=== PATIENT | female | born 1945 | race Caucasian/White ===

== ENCOUNTER → 2020-09-30 14:10 | Outpatient (CLI) | payer MEDICARE, SELFPAY ==
--- NOTE | 2020-09-30 14:10 | CT_ITS ---
PROCEDURE: CT ABDOMEN PELVIS WO CON CLINICAL INDICATION: abd pain, constipation, right flank pain COMPARISON: No exams were available for comparison TECHNIQUE: Axial images obtained with sagittal and coronal reformats. All CT scans at the facility use one or more dose reduction, viz: automated exposure control, ma/kV adjustment per patient size (including targeted exams where dose is matched to indication, i.e. head), or iterative reconstruction technique. FINDINGS: LOWER THORAX: No acute finding ABDOMEN & PELVIS: The liver has an unremarkable appearance. There are multiple splenic calcified granulomas. The adrenal glands and pancreas are unremarkable. Small focus of increased density is present in the posterior aspect of the gallbladder suggesting a small stone inferiorly. There is mild prominence of the renal pelves on both sides. No renal or ureteral calculi. No intestinal obstruction or free air. The bowel gas pattern is nonspecific with a few air-fluid levels within nondistended small bowel. Prior hysterectomy. There is colonic diverticulosis but no evidence of diverticulitis. Atheromatous changes involve the abdominal aorta with minimal ectasia of the mid abdominal aorta. No acute bony findings. IMPRESSION: Possible mild enteritis Otherwise negative Dictated by: Jesus Diane MD 09/30/2020 15:26 Jesus Diane MD in [place] 09/30/2020 15:26
== END ==
PROVIDERS: PCP Family Medicine; Visit Provider Family Medicine
DX: R10.32 Left lower quadrant pain (principal); R10.9 Unspecified abdominal pain
CPT/HCPCS: 74176

== ENCOUNTER → 2021-11-28 10:40 | Outpatient (CLI) | payer MEDICARE, SELFPAY ==
--- NOTE | 2021-11-28 10:40 | US_ITS ---
FINAL REPORT CLINICAL HISTORY: history of TIA FINDINGS: Sonographic images were obtained of the abdominal aorta. There is plaque and irregularity of the lumen of the aorta. The abdominal aorta measures up to approximately 3.2 cm in greatest dimensions. The common iliac arteries are within normal limits. 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 Recommend follow-up ultrasound or CTA. Reviewed, Interpreted and Dictated by Cedrick Robertson III, MD Transcribed by Tadeo Farmer Authenticated and [facility]
== END ==
PROVIDERS: PCP Family Medicine; Visit Provider Family Medicine
DX: Z13.6 Encounter for screening for cardiovascular disorders (principal)
CPT/HCPCS: 76705

== ENCOUNTER → 2021-11-28 11:29 | Outpatient (CLI) | payer MEDICARE, SELFPAY ==
[2021-11-28 13:44] LABS: Blood Urea Nitrogen 19 mg/dl (7-17); Estimated Glomerular Filt Rate 61 ml/min (>60); GFR (African American) 74 ML/MIN (>60)
== END ==
PROVIDERS: PCP Family Medicine; Visit Provider Family Medicine
DX: G45.8 Other transient cerebral ischemic attacks and related syndromes (principal); Z13.6 Encounter for screening for cardiovascular disorders
CPT/HCPCS: 36415; 76705; 82565; 84520

== ENCOUNTER → 2021-11-30 13:20 | Outpatient (CLI) | payer MEDICARE, SELFPAY ==
--- NOTE | 2021-11-30 13:20 | CT_ITS ---
FINAL REPORT TECHNIQUE: Thin section axial CT with IV contrast supplemented with multiplanar reconstruction under CT angiogram protocol. This study was performed with techniques to keep radiation doses as low as reasonably achievable (ALARA). Individualized dose reduction techniques using automated exposure control or adjustment of mA and/or kV according to the patient''s size were employed. NASCET criteria was utilized during interpretation. CLINICAL HISTORY: TIA FINDINGS: Aortic arch: Arch shows no significant narrowing. Great vessel origins are widely patent. Right carotid: No significant stenosis is seen of the cervical common or internal carotid artery. Left carotid: No significant stenosis is seen of the cervical common or internal carotid artery. Vertebral: Left vertebral artery is dominant. No significant stenosis is present. There is mild emphysema and scarring in the lung apices. There are ground-glass opacities in the lateral left upper lobe that are nonspecific. IMPRESSION: No significant stenosis. Nonspecific ground-glass opacity in the lateral left upper lobe. Consider follow-up chest CT. Reviewed, Interpreted and Dictated by Cedrick Robertson III, MD Transcribed by Tadeo Farmer Authenticated and . [facility]
--- NOTE | 2021-11-30 13:20 | CT_ITS ---
FINAL REPORT CLINICAL HISTORY: . tia FINDINGS: Axial imaging of the head was obtained with contrast. This study was performed with techniques to keep radiation doses as low as reasonably achievable, (ALARA). Individualized dose reduction techniques using automated exposure control or adjustment of mA and/or kV according to the patient's size were employed. The ventricles are normal in size. There is no evidence of hemorrhage. No masses are identified. No extra-axial fluid is seen. The sinuses are normal. There is no acute osseous abnormality. There is no abnormal contrast enhancement. Mucus is noted in the right sphenoid sinus. IMPRESSION: No acute intracranial abnormality. Reviewed, Interpreted and Dictated by Cedrick Robertson III, MD Transcribed by Tadeo Farmer Authenticated and [facility]
== END ==
PROVIDERS: PCP Family Medicine; Visit Provider Family Medicine
DX: G45.8 Other transient cerebral ischemic attacks and related syndromes (principal)
CPT/HCPCS: 70460; 70498; Q9967

== ENCOUNTER → 2022-04-03 13:40 | Outpatient (CLI) | payer MEDICARE, SELFPAY ==
--- NOTE | 2022-04-03 13:41 | CT_ITS ---
FINAL REPORT TECHNIQUE: Noncontrast CT exam of the abdomen and pelvis. This study was performed with techniques to keep radiation doses as low as reasonably achievable (ALARA). Individualized dose reduction techniques using automated exposure control or adjustment of mA and/or kV according to the patient''s size were employed. CLINICAL HISTORY: Rectal bleeding, diarrhea COMPARISON: 09/30/2020 FINDINGS: Abdomen: Lung bases are clear. Liver, spleen, pancreas and adrenal glands have a normal CT appearance in their limited unenhanced state. The gallbladder is unremarkable. There is no evidence of free air or free fluid. The kidneys show no stone disease or obstruction. No obvious renal mass is present. No ureteral stones are present. Pelvis: The appendix is not visualized, possibly removed at time of hysterectomy. The bladder is mildly distended. No distal ureteral stones are seen. No fluid collection or adenopathy is seen. IMPRESSION: No acute findings. Reviewed, Interpreted and Dictated by Erick Miranda MD Transcribed by Margie Gibson Authenticated and [facility]
== END ==
PROVIDERS: PCP Family Medicine; Visit Provider Family Medicine
DX: K59.9 Functional intestinal disorder, unspecified (principal); K62.5 Hemorrhage of anus and rectum; R10.9 Unspecified abdominal pain; R63.4 Abnormal weight loss
CPT/HCPCS: 74176

== ENCOUNTER 2022-04-12 12:36 | Day surgery (SDC) | payer MEDICARE, SELFPAY ==
[2022-03-23 12:24] VITALS: BMI 20.1
[2022-04-12 12:46] VITALS: BP 127/62; PULSE 64; RESP 18; TEMP 36.3; O2SAT 98
[2022-04-12 13:15] VITALS: O2SAT 98
--- NOTE | 2022-04-12 13:26 | EXP.ANES.CKL ---
[facility] Disclaimer: The information contained in this section may have been updated after the patient was seen, as this information can be updated by other users. Medical History History of confusion History of transient ischemic attack (TIA) Surgical History No significant past surgical history Family History Other No significant family history Social History Smoking Status: Never smoker alcohol intake: never substance use type: denies use current occupational status: retired Travel in the last 8 weeks: None housing: house lives independently: Yes marital status: single education level: high school caffeine: Yes special nan needs: No agree to transfusion: No do you feel safe at home: Yes victim of physical abuse: No victim of emotional abuse: No victim of sexual abuse: No would you like helpful sources: No [facility] Anesthesia Checklist Patient Identification Patient Identification: Verbal (Name & ) Structural Data Admitted From: Home Planned Operative Procedure/s: colonoscopy Consent for Planned Operative Procedure(s) Verified: Yes Airway Assessment C-Spine Mobility Assessed: Yes TMJ Mobility Assessed: Yes Dentition: Poor Dentition Neurological Assessment Level of Consciousness: Awake, Alert and Appropriate Anesthesia Plan Anesthesia Risk discussed: Yes Anesthesia Plan: Verified ASA Class: III Anesthesia Type: MAC
--- NOTE | 2022-04-12 13:33 | [facility].SCOPE ---
Procedure: Date: 04/12/22 Patient Date of :: 1945 Procedure Performed:: Colonoscopy with polypectomy Indications:: Chronic abdominal pain, rectal bleeding Performing Provider:: Ede Gibbs MD Referring Provider:: Kahlil Rivas Sedation:: Propofol Procedure:: After placing the patient in the left lateral decubitus position, the colonoscopy was gently inserted into the rectum and under direct visualization advanced to the cecum which was identified by transillumination in the right lower quadrant, identification of the ileocecal valve, appendiceal orifice, and cecal strap. Color, texture, mucosa, and anatomy of the colon were carefully examined with the scope. Findings:: Anal canal: normal Rectum: normal Sigmoid colon: 0.5 cm adenomatous polyp identified and removed with cold snare. Descending colon: normal without polyps or inflammatory changes Splenic flexure: normal Transverse colon: normal without polyps or inflammatory changes Hepatic flexure: normal Ascending colon: normal without polyps or inflammatory changes Cecum: normal Terminal ileum: not visualized Impression: Sigmoid polyp otherwise unremarkable colonoscopy Specimens:: Sigmoid polyp Recommendations:: Repeat examination in 3-5 years as clinically indicated. Complications:: None Estimated blood obtained (mL): 0
[2022-04-12 13:34] VITALS: BP 83/44; PULSE 66; RESP 15; TEMP 36.2; O2SAT 96
[2022-04-12 13:44] VITALS: BP 108/66; PULSE 61; RESP 16; O2SAT 95
[2022-04-12 13:54] VITALS: BP 100/69; PULSE 64; RESP 16; O2SAT 95
[2022-04-12 14:04] VITALS: BP 94/57; PULSE 61; RESP 16; O2SAT 94
== END 2022-04-12 14:11 | disposition home or self-care (01) ==
PROVIDERS: PCP Family Medicine; Visit Provider Internal Medicine Gastroenterology
PROC: 0DJD8ZZ Inspection of Lower Intestinal Tract, Via Natural or Artificial Opening Endoscopic (ICD-10-PCS; CPT 45378; principal; 2022-04-12 13:30)
DX: K62.5 Hemorrhage of anus and rectum (principal); R10.9 Unspecified abdominal pain; D12.5 Benign neoplasm of sigmoid colon; Z79.899 Other long term (current) drug therapy
CPT/HCPCS: 45385; 88305

== ENCOUNTER → 2022-07-16 20:54 | Outpatient (CLI) | payer MEDICARE, SELFPAY ==
[2022-07-16 21:25] LABS: Basophils % 0.3 % (0.1-2.0); Eosinophils # 0.1 K/mm3 (0.0-0.4); Eosinophils % 0.8 % (0.1-12.0); Hematocrit 43.6 % (37.0-47.0); Hemoglobin 13.8 g/dL (12.2-16.2); Lymphocytes % 27.5 % (10-50); Mean Corpuscular HGB Conc 31.6 g/dL (31.8-35.4); Mean Corpuscular Hemoglobin 30.5 pg (27.0-31.2); Mean Corpuscular Volume 96.4 fl (81-99); Mean Platelet Volume 10.9 fl (7.4-10.4); Monocytes # 0.7 K/mm3 (0.1-1.0); Monocytes % 6.4 % (1.7-9.3); Neutrophils # 7.1 K/mm3 (1.8-7.8); Neutrophils % 64.9 % (37.0-80.0); Platelet Count 313 K/mm3 (142-424); Red Blood Count 4.52 M/mm3 (4.20-5.40); Red Cell Distribution Width 14.3 % (11.5-17.5); White Blood Count 10.9 K/mm3 (4.8-10.8)
[2022-07-16 21:40] LABS: Alanine Aminotransferase 17 U/L (12-78); Albumin Level 4.2 g/dl (3.5-5.0); Albumin/Globulin Ratio 1.6 (1.1-1.8); Alkaline Phosphatase 90 U/L (38-126); Anion Gap 9.2 mEq/L (5-15); Aspartate Amino Transferase 32 U/L (14-36); Bilirubin,Total 0.4 mg/dl (0.2-1.3); Blood Urea Nitrogen 18 mg/dl (7-17); Carbon Dioxide 24 mmol/L (22.0-30.0); Chloride 103 mmol/L (98-107); Chol/HDL Ratio 2.7 (1-3.5); Cholesterol 250 mg/dl (140-200); Estimated Glomerular Filt Rate 61 ml/min (>60); GFR (African American) 74 ML/MIN (>60); Globulin 2.6 g/dL (1.3-3.2); Glucose 60 mg/dl (74-100); HDL Cholesterol 92 mg/dl (40-60); Potassium 4.2 mmoL/L (3.5-5.1); Sodium 132 mmol/L (136-145); Total Protein,Serum 6.8 g/dl (6.3-8.2); Triglycerides 154 mg/dl (30-150); VLDL Cholesterol 31 mg/dL (0-40)
[2022-07-16 21:51] LABS: Direct LDL Cholesterol 100.33 mg/dL (100-129)
== END ==
PROVIDERS: PCP Family Medicine; Visit Provider Family Medicine
DX: R53.83 Other fatigue (principal); R63.4 Abnormal weight loss; R19.7 Diarrhea, unspecified; Z79.899 Other long term (current) drug therapy
CPT/HCPCS: 80053; 80061; 84443; 85025

== ENCOUNTER 2023-09-12 18:00 | Outpatient (CLI) | payer MEDICARE, SELFPAY ==
[2023-09-12 20:08] LABS: Basophils # 0.1 K/mm3 (0-0.2); Basophils % 0.8 % (0.1-2.0); Eosinophils % 0.5 % (0.1-12.0); Hemoglobin 13.6 g/dL (12.2-16.2); Lymphocytes # 2.3 K/mm3 (0.7-4.5); Lymphocytes % 28.3 % (10-50); Mean Corpuscular HGB Conc 35.6 g/dL (31.8-35.4); Mean Corpuscular Hemoglobin 34.4 pg (27.0-31.2); Mean Corpuscular Volume 96.4 fl (81-99); Mean Platelet Volume 10.8 fl (7.4-10.4); Monocytes # 0.5 K/mm3 (0.1-1.0); Monocytes % 6.1 % (1.7-9.3); Neutrophils # 5.3 K/mm3 (1.8-7.8); Neutrophils % 64.4 % (37.0-80.0); Platelet Count 226 K/mm3 (142-424); Red Blood Count 3.95 M/mm3 (4.20-5.40); Red Cell Distribution Width 14.7 % (11.5-17.5); White Blood Count 8.3 K/mm3 (4.8-10.8)
[2023-09-12 20:41] LABS: Alanine Aminotransferase 18 U/L (12-78); Albumin Level 4.2 g/dl (3.5-5.0); Albumin/Globulin Ratio 1.4 (1.1-1.8); Alkaline Phosphatase 107 U/L (38-126); Anion Gap 14.5 mEq/L (5-15); Aspartate Amino Transferase 33 U/L (14-36); Bilirubin,Total 0.5 mg/dl (0.2-1.3); Blood Urea Nitrogen 28 mg/dl (7-17); Calcium 10.1 mg/dl (8.4-10.2); Carbon Dioxide 22 mmol/L (22.0-30.0); Chloride 103 mmol/L (98-107); Estimated Glomerular Filt Rate 54 ml/min (>60); GFR (African American) 65 ML/MIN (>60); Globulin 2.9 g/dL (1.3-3.2); Glucose 93 mg/dl (74-100); Potassium 4.5 mmoL/L (3.5-5.1); Sodium 135 mmol/L (136-145); Total Protein,Serum 7.1 g/dl (6.3-8.2)
[2023-09-12 21:10] LABS: Thyroid Stimulating Hormone 2.09 uIU/mL (0.465-4.68)
== END 2023-09-12 23:59 | disposition home or self-care (01) ==
LOC: LAB.DROPOF 09-13 14:32
PROVIDERS: PCP Family Medicine; Visit Provider Family Medicine
DX: R63.4 Abnormal weight loss (principal); G89.29 Other chronic pain; Z68.22 Body mass index [BMI] 22.0-22.9, adult
CPT/HCPCS: 80050; 80053; 84443; 85025